=== PATIENT | female | born 1940 | race Asian ===

== ENCOUNTER → 2024-06-15 | Outpatient (CLI) | payer MEDICARE, OTHER, SELFPAY ==
[2024-06-15 12:40] LABS: Anion Gap 9 (7-16); BUN/Creatinine Ratio 24 Ratio (12-20); Blood Urea Nitrogen 24 mg/dL (9-23); Calcium 9.4 mg/dL (8.3-10.6); Calcium (Corrected) 9.4 mg/dL (8.5-10.1); Carbon Dioxide 31.8 mMol/L (20.0-31.0); Chloride 103 mMol/L (98-107); Glucose 117 mg/dL (74-106); Osmolality,Calculated 291 (275-295); Phosphorous 3.1 mg/dL (2.4-5.1); Sodium 144 mMol/L (136-145); eGFR 56 See Note
[2024-06-15 13:09] LABS: Potassium 2.6 mMol/L (3.4-5.1)
== END | disposition home or self-care (01) ==
LOC: COPL 11:27
PROVIDERS: PCP Family Medicine; Referring Provider Family Medicine; Visit Provider Family Medicine
DX: Z13.1 Encounter for screening for diabetes mellitus (principal)
CPT/HCPCS: 36415; 80069

== ENCOUNTER → 2024-06-21 | Outpatient (CLI) | payer MEDICARE, OTHER, SELFPAY ==
[2024-06-21 13:29] LABS: Albumin, Serum 3.9 gm/dL (3.4-4.8); Anion Gap 9 (7-16); BUN/Creatinine Ratio 20 Ratio (12-20); Blood Urea Nitrogen 20 mg/dL (9-23); Calcium 9.2 mg/dL (8.3-10.6); Calcium (Corrected) 9.3 mg/dL (8.5-10.1); Carbon Dioxide 31.8 mMol/L (20.0-31.0); Chloride 100 mMol/L (98-107); Glucose 102 mg/dL (74-106); Osmolality,Calculated 283 (275-295); Phosphorous 2.8 mg/dL (2.4-5.1); Sodium 141 mMol/L (136-145); eGFR 56 See Note
== END | disposition home or self-care (01) ==
LOC: COPL 11:42
PROVIDERS: PCP Family Medicine; Referring Provider Family Medicine; Visit Provider Family Medicine
DX: Z13.1 Encounter for screening for diabetes mellitus (principal)
CPT/HCPCS: 36415; 80069

== ENCOUNTER → 2024-06-28 | Outpatient (CLI) | payer MEDICARE, OTHER, SELFPAY ==
[2024-06-28 11:21] LABS: Albumin, Serum 4.3 gm/dL (3.4-4.8); Anion Gap 10 (7-16); BUN/Creatinine Ratio 22 Ratio (12-20); Blood Urea Nitrogen 22 mg/dL (9-23); Calcium 9.8 mg/dL (8.3-10.6); Calcium (Corrected) 9.8 mg/dL (8.5-10.1); Carbon Dioxide 28.9 mMol/L (20.0-31.0); Chloride 103 mMol/L (98-107); Glucose 139 mg/dL (74-106); Osmolality,Calculated 288 (275-295); Phosphorous 2.1 mg/dL (2.4-5.1); Potassium 3.6 mMol/L (3.4-5.1); Sodium 142 mMol/L (136-145); eGFR 56 See Note
== END | disposition home or self-care (01) ==
LOC: COPL 09:33
PROVIDERS: PCP Family Medicine; Referring Provider Family Medicine; Visit Provider Family Medicine
DX: Z13.1 Encounter for screening for diabetes mellitus (principal)
CPT/HCPCS: 36415; 80069

== ENCOUNTER → 2024-07-07 | Outpatient (CLI) | payer MEDICARE, OTHER, SELFPAY ==
--- NOTE | 2024-07-07 12:00 | XR_ITS ---
Examination: MRI of brain without intravenous contrast. MRI brain with intravenous contrast. Date and time of exam:July 17, 2024 1214 hours INDICATIONS: Headaches blurred vision dizziness beginning 2 months ago COMPARISON: April 17, 2015 Technique: Multiple axial and sagittal images of the brain to been obtained. Siemens high-resolution 1.52 Monica short bore scanner utilized. Sagittal sections, T1 weighted images, TR 500, TE 14, are performed. Axial sections proton-density and T2-weighted images have been obtained. Inversion recovery axial images, TR 9260, TE 111, TR 2500. Diffusion weighted images, axial sections, TR 4800, TE 128, B value 1000. Axial sections, ADC map, TR 4800, TE 128. Axial and coronal images were also obtained post 12 cc gadolinium administered intravenously. Findings:: Enlargement of the sella turcica is not present. The optic chiasm and infundibular stalk are not remarkable. There is no localized enlargement of the medulla or jani. Fourth ventricle and cerebellar tonsils appear normal in position. No subacute area of hemorrhage density is seen. Fourth ventricle is midline. Mass in the cerebellopontine angle region is not evident. 7th and 8th nerve complexes exhibit symmetry Globes are symmetrical Orbital musculature including medial lateral rectus muscles do not exhibit abnormality Increased white matter signal is mild Effacement of the cortical sulcal markings is not identified. Mass effect upon the ventricular system is not identified. Diffusion-weighted images demonstrate no focus of restricted diffusion Contrast images demonstrate no abnormal enhancing seventh 8th nerve complexes cerebellar or cerebral lesions Impression: Negative for acute hemorrhage mass effect or midline shift No acute infarct Mild bilateral mastoiditis No abnormal enhancing cerebellar or cerebral lesions
== END | disposition home or self-care (01) ==
LOC: SMRI 11:36
PROVIDERS: PCP Family Medicine; Referring Provider Family Medicine; Visit Provider Family Medicine
DX: H70.93 Unspecified mastoiditis, bilateral (principal)
CPT/HCPCS: 70553; A9579